=== PATIENT | male | born 1970 | race African-American/Black ===

== ENCOUNTER 2020-04-19 17:20 | Emergency (ER) | payer OTHER ==
[~2020-04-19] VITALS: Ht 177.8 cm; Wt 95.0 kg
--- NOTE | 2020-04-19 17:38 | NUR ---
PT PRESENTS TO ED VIA RPD. PER PT, HEARING VOICES TELLING HIM TO HARM HIMSELF. PT HAS DEALT WITH THESE SYMPTOMS FOR "YEARS" BUT ACUTELY WORSE X2 WEEKS. PT WAS ON [place] FROM [place] HEADING TO [place]. PT STATES "I WANT TO LIVE" DENIES SPECIFIC PLANS OR THOUGHTS OF HOW TO HARM HIMSELF. REPORTS HX OF CUTTING WRISTS OR OVERDOSING. NO RECENT ATTEMPT IN THE LAST 12 MONTHS. PT BELONGINGS LABELLED AND LOCKED. 3 PT BELONGING BAGS AND 1 SMALL BAG INSIDE OF LARGER PT BELONGING BAG THAT CONTAINS PT'S WALLET, WATCH AND CELL PHONE. PT PLACED ALL ITEMS IN BAGS AND BAGS WERE LABELLED AND TIED IN FRONT OF PT. PT UNDRESSED, IN GOWN. GARAGE DOORS CLOSED. PT HAS REMOTE. SITTER IS AWARE. SITTER IS OUTSIDE OF ROOM FOR OBSERVATION AND SAFETY CHECKS.
--- NOTE | 2020-04-19 18:41 | NUR ---
UA COLLECTED AND SENT TO LAB.
[2020-04-19 18:52] LABS: MICROSCOPIC INDICATED
[2020-04-19 18:58] LABS: BASOPHILS % (AUTO) 0 % (0-1); EOSINOPHILS % (AUTO) 2 % (1-7); LYMPHOCYTES % (AUTO) 31 % (22-44); MEAN CORPUSCULAR HEMOGLOBIN 29.1 pg (27.5-34.5); MEAN CORPUSCULAR HGB CONC 33.3 g/dL (33.2-36.2); MEAN PLATELET VOLUME 8.2 fL (7.4-10.4); MONOCYTES % (AUTO) 9 % (2-9); NEUTROPHILS % (AUTO) 59 % (42-75); PLATELET COUNT 199 x10^3/uL (130-400); RED BLOOD COUNT 5.07 x10^6/uL (4.38-5.82); RED CELL DISTRIBUTION WIDTH 14.7 % (9.4-14.8)
[2020-04-19 18:59] LABS: MD NO
--- NOTE | 2020-04-19 18:59 | NUR ---
REPORT TO XIN SANTOS.
[2020-04-19 19:01] LABS: AMPHETAMINE SCREEN, URINE Negative (Negative); BARBITURATE SCREEN, URINE Negative (Negative); BENZODIAZEPINE SCREEN, URINE Negative (Negative); CANNABINOID SCREEN, URINE Negative (Negative); COCAINE SCREEN, URINE Negative (Negative); METHADONE SCREEN, URINE Negative (Negative); OPIATE SCREEN, URINE Positive (Negative)
[2020-04-19 19:15] LABS: ALANINE AMINOTRANSFERASE 183 U/L (12-78); ALBUMIN 3.4 g/dL (3.4-5.0); ANION GAP 3 mmol/L (5-15); CALCIUM 9.5 mg/dL (8.5-10.1); CHLORIDE 110 mmol/L (98-107); CREATININE 1.03 mg/dL (0.7-1.3); SALICYLATE LEVEL 2.8 mg/dL (2.8-20.0)
[2020-04-19 19:17] LABS: ALKALINE PHOSPHATASE 116 U/L (45-117); BILIRUBIN,TOTAL 0.5 mg/dL (0.2-1.0); TOTAL PROTEIN 6.8 g/dL (6.4-8.2)
--- NOTE | 2020-04-19 20:53 | NUR ---
PT RESTING IN BED, PT STOOD AND AMBULATED TO CORNER OF ROOM. PT PLACED IN FLOOR BED. PT FEED A TURKEY SANDWICH AND CHIPS AT PT REQUEST. PT PROVIDED 3 XTRA BLANKETS
--- NOTE | 2020-04-19 22:01 | NUR ---
PT SLEEPING IN BED, PT IN SI SECURE ROOM WITH ITTER AT PT DOOR. PT HAS NO CURRENT WANTS OR NEEDS AT THIS TIME.
--- NOTE | 2020-04-19 22:36 | NUR ---
TP RN: Packet faxed to [facility]; patient self pay.
--- NOTE | 2020-04-20 00:15 | NUR ---
PT SLEEPING IN BED, PT IN SI SECURE ROOM WITH ITTER AT PT DOOR. PT HAS NO CURRENT WANTS OR NEEDS AT THIS TIME.
--- NOTE | 2020-04-20 01:29 | NUR ---
PT SLEEPING IN BED, PT IN SI SECURE ROOM WITH ITTER AT PT DOOR. PT HAS NO CURRENT WANTS OR NEEDS AT THIS TIME.
--- NOTE | 2020-04-20 03:15 | NUR ---
PT SLEEPING IN BED, PT IN SI SECURE ROOM WITH ITTER AT PT DOOR. PT HAS NO CURRENT WANTS OR NEEDS AT THIS TIME.
--- NOTE | 2020-04-20 04:05 | NUR ---
Break RN: patient sleeping in hospital bed. Respirations even and unlabored. Room secure, belongings locked in cabinet, sitter outside.
--- NOTE | 2020-04-20 07:00 | NUR ---
SBAR RPT REC'D, ASSUMED PT CARE. PT ON HOSPITAL BED, SLEEPING, RESP EVEN NON-LABORED. SITTER AT DOORWAY WITH PT IN VIEW AND ROOM SECURED.
--- NOTE | 2020-04-20 09:01 | NUR ---
PT ARROUSES EASILY WHEN RN ENTERS ROOM. VSS NOTED. PT STATES HE IS HAVING THOUGHTS OF KILLING HIMSELF BUT HAS NO PLANS. ALSO STATES THAT HE NEEDS TO SEE THE RETINAL SURGEON SO HE CAN GET BACK HOME. STATES HE LIVES IN [place]. MEAL TRAY PROVIDED AND SET UP FOR PT. POC DISCUSSED, INFORMED HIM THAT BOTH THE RETINAL SURGEON WELL SHOT POLISHER AND INSPECTOR WILL BE IN TO SEE HIM TODAY. INTRODUCED PT TO FLOYD FLETCHER WHO WILL BE MONITORING HIM TODAY. PT PLEASANT AND COOPERATIVE. CALL LIGHT W/I REACH, ROOM SECURE.
--- NOTE | 2020-04-20 09:53 | NUR ---
PT ATE 100% OF BREAKFAST. DEJAN PSYCH TECHNICAL FELLOW AT BEDSIDE.
--- NOTE | 2020-04-20 10:23 | NUR ---
PT AMBULATORY TO SHOWER ROOM WITH RN ESCORT. PSA OUTSIDE DOOR FOR MONITORING. PT VERBALIZES UNDERSTANDING TO LIMIT SHOWER TO 15MIN.
--- NOTE | 2020-04-20 10:44 | NUR ---
PT COMPLETED SHOWER AND ADL'S INDEPENDENTLY. TOOTHBRUSH, TOOTHPASTE, LIP MOISTURIAER PROVIDED. PT RTD TO ROOM W/O INCIDENT.
--- NOTE | 2020-04-20 10:59 | NUR ---
PT C/O "GREEN DISCHARGE" COMING FROM HIS PENIS. PROVIDER INFORMED
[2020-04-20] MEDS ORDERED: CEFTRIAXONE 1,000 MG IM ONE (11:30)
[2020-04-20 11:44] LABS: MICROSCOPIC INDICATED
[2020-04-20] MEDS ORDERED: CEFTRIAXONE 250 MG ONE (11:48)
--- NOTE | 2020-04-20 11:52 | NUR ---
PSYCH REGIONAL FACILITIES SPECIALIST AT BEDSIDE.
--- NOTE | 2020-04-20 12:19 | NUR ---
LUNCH TRAY PROVIDED. VSS, NAD NOTED. PT MED NOTED FOR POSSIBLE STD. CALL LIGHT W/I REACH, SITTER AT DOORWAY WITH PT IN VIEW.
--- NOTE | 2020-04-20 13:19 | NUR ---
SW, SPOKE WITH PTS GRANDFATHER VIA PHONE. GARNDFATHER TO COME FOREIGN CORRESPONDENT PATIENT FOR SAFE D/C HOME. PT BELONGINGS BAGS X2 GIVEN TO PT INCLUDING HIS PHONE. PT DRESSED AND IS WAITING FOR GRANDFATHERS ARRIVAL.
--- NOTE | 2020-04-20 20:03 | NUR ---
PT FINISHED MEAL. GIVEN DRINK AND SNACKS. PT COMPLAINING OF DISCOMFORT IN R HAND AND BILATERAL FEET. BURNING SENSATION. WCTM. VSS. PT STATES HE DOESN'T HAVE THOUGHTS OF HARMING HIMSELF. HE STATES NOW THAT IS MEDICATIONS IS FIXED HE FEELS BETTER. SITTER AT BEDSIDE FOR PATIENT SAFETY.
--- NOTE | 2020-04-21 01:05 | NUR ---
PT SLEEPING. NO COMPLAINTS. EQUAL RISE AND FALL OF CHEST. SITTER AT BEDSIDE. WCTM.
--- NOTE | 2020-04-21 01:22 | NUR ---
TASK RN: PT RESTING ON HOSPITAL BED. NADN RESP EVEN AND UNLABORED
--- NOTE | 2020-04-21 02:54 | NUR ---
PT GIVEN APPLE JUICE AND CRACKERS. NO COMPLAINTS AT THIS TIME. SITTER AT BEDSIDE.
--- NOTE | 2020-04-21 07:25 | NUR ---
RECVD REPORT FROM RONALD LAUREN. ASSUMED CARE OF PATIENT. Addendum: 04/21/20 at 0725 by ESTRELLITA SERA DUKE, SPOKE WITH DR CISNEROS REGARDING D/C PLANS. PATIENT NEEDS TO BE AT THE BUS STATION BY 10:00. WILL D/C BY 9:00 SO HE HAS TIME TO GET THERE.
--- NOTE | 2020-04-21 07:33 | NUR ---
PATIENT IS RESTING COMFORTABLY IN A HOSPTIAL BED. HE STATES HE IS FEELING BETTER ON HIS MEDICATION NOW AND IS NOT HEARING VOICES OR HAVING ANY HALLUCINATIONS. SITTER OUTSIDE DOOR.
--- NOTE | 2020-04-21 08:09 | NUR ---
PATIENT IN SECURE ROOM, RESTING COMFORTABLY, AWAITING BREAKFAST TRAY AND DC
[2020-04-21] MEDS ORDERED: AZITHROMYCIN 250 MG TABLET ONE (08:57)
[2020-04-21] MEDS ORDERED: AZITHROMYCIN 500 MG TABLET PO ONE (09:00)
[2020-04-21 09:32] VITALS: BP 150/90
--- NOTE | 2020-04-21 09:32 | NUR ---
Patient given discharge instructions and they have confirmed that they understand the instructions. Patient ambulatory with steady gait. Patient d/c with cab voucher to [employer]. Patient also stated he had a physician to follow up with when he got home. Addendum: 04/21/20 at 1019 by [email or web address] PATIENT ALSO DISCHARGED WITH 3 BAGS OF BELONGINGS INCLUDING HIS PHONE, WATCH, AND CLOTHES.
== END 2020-04-21 09:35 | disposition home or self-care (01) ==
LOC: ED 21:42
DX: F11.951 Opioid use, unspecified with opioid-induced psychotic disorder with hallucinations (principal)
CPT/HCPCS: 36415; 80053; 80299; 80307; 80320; 80329; 81001; 85025; 87086; 87491; 87591; 96372; 99285; J0696; G0480